=== PATIENT | male | born 1965 | race Caucasian/White ===

== ENCOUNTER 2019-06-04 19:30 | Emergency (ER) | payer MEDICAID ==
[~2019-06-04] VITALS: Ht 193 cm; Wt 108.9 kg
[2019-06-04 20:00] VITALS: BP 138/88
[2019-06-04] MEDS ORDERED: PANTOPRAZOLE 40 MG/10 ML VIAL INJ IV STA (20:12)
[2019-06-04] MEDS ORDERED: ONDANSETRON HCL 4 MG/2 ML VIAL IV ONE (20:15)
[2019-06-04] MEDS ORDERED: MORPHINE SULFATE 4 MG/ML SYR/VIAL IV ONE (20:15)
[2019-06-04 20:51] LABS: Basophils # (auto) 0.1 uL; Basophils % (auto) 0.6 % (0.0-2.0); Eosinophils # (auto) 0.3 uL; Eosinophils % (auto) 3.9 % (0.0-7.0); Hemoglobin 16.1 g/dL (13.5-17.5); Lymphocytes # (auto) 1.7 uL; Lymphocytes % (auto) 19.3 % (10.0-50.0); Mean Corpuscular Hemoglobin 28.6 pg (28.0-32.0); Mean Corpuscular Hgb Conc. 34.3 g/dL (32.0-36.0); Mean Corpuscular Volume 83.3 fL (80.0-100.0); Monocytes # (auto) 1.1 uL; Neutrophils # (auto) 5.5 uL; Neutrophils % (auto) 63.2 % (37.0-80.0); Nucleated Red Blood Cells % 0.3 %; Platelet Count (auto) 287 10^3/uL (140-450); Red Blood Cells 5.65 10^6/uL (4.5-5.90); Red Cell Distribution Width 15.6 % (11.8-14.3); White Blood Cell 8.7 10^3/uL (4.4-10.8)
[2019-06-04 21:09] LABS: Albumin 3.5 g/dL (3.4-5.0); Calcium 9.2 mg/dL (8.5-10.1)
[2019-06-04 21:10] LABS: Bilirubin, Total 0.7 mg/dL (0.2-1.0); Total Protein 8.1 g/dL (6.4-8.2)
== END 2019-06-05 02:00 | disposition home or self-care (01) ==
LOC: ER 19:33
DX: R10.84 Generalized abdominal pain (principal); R19.7 Diarrhea, unspecified; J45.909 Unspecified asthma, uncomplicated; Z87.891 Personal history of nicotine dependence; Z88.0 Allergy status to penicillin; Z88.1 Allergy status to other antibiotic agents
CPT/HCPCS: 36415; 74176; 80053; 82150; 83690; 85025

== ENCOUNTER 2021-01-05 22:15 | Emergency (ER) | payer MEDICAID ==
[~2021-01-05] VITALS: Ht 182.9 cm; Wt 122.5 kg
[2021-01-06] MEDS ORDERED: HYDROcodone-ACET 10/325MG TAB PO ONE (02:30)
[2021-01-06] MEDS ORDERED: ONDANSETRON ODT 4 MG TAB PO ONE (02:30)
[2021-01-06] MEDS ORDERED: OXYMETAZOLINE HCL 0.05 % NASAL SPRAY 15ML EACHNOSTRI ONE (02:30)
[2021-01-06 04:06] VITALS: BP 136/89
== END 2021-01-06 04:24 | disposition home or self-care (01) ==
LOC: EDBD 22:15 → ER 22:15
DX: R04.0 Epistaxis (principal); J45.909 Unspecified asthma, uncomplicated; Z87.09 Personal history of other diseases of the respiratory system; Z90.49 Acquired absence of other specified parts of digestive tract; Z90.89 Acquired absence of other organs; Z88.0 Allergy status to penicillin; Z88.1 Allergy status to other antibiotic agents
CPT/HCPCS: 99283; Q0162

== ENCOUNTER 2021-03-29 16:19 | Emergency (ER) | payer MEDICAID ==
[~2021-03-29] VITALS: Ht 188 cm; Wt 122.5 kg
[2021-03-29] MEDS ORDERED: IPRATROPIUM BROM 0.5 MG/2.5ML INH SOL NEB ONE (17:30)
[2021-03-29] MEDS ORDERED: ALBUTEROL SULF 2.5 MG/0.5ML(0.5%) NEB SOLN NEB ONE (17:30)
[2021-03-29] MEDS ORDERED: methylPREDNISolone SOD SUCC 125 MG/2 ML VL IM ONE (17:30)
[2021-03-29 18:18] VITALS: BP 117/70
== END 2021-03-29 18:21 | disposition home or self-care (01) ==
LOC: ER 16:19
DX: J45.901 Unspecified asthma with (acute) exacerbation (principal); Z90.49 Acquired absence of other specified parts of digestive tract; Z87.891 Personal history of nicotine dependence; Z20.822 Contact with and (suspected) exposure to COVID-19
CPT/HCPCS: 36415; 71045; 87426; 94640; 96372; 99284; J2930; J7644; 93005

== ENCOUNTER 2021-10-16 02:33 | Emergency (ER) | payer MEDICAID ==
[~2021-10-16] VITALS: Ht 193 cm; Wt 120.7 kg
[2021-10-16 03:30] LABS: Hematocrit 26.5 % (41.0-53.0); Mean Corpuscular Hemoglobin 17.1 pg (28.0-32.0); Red Blood Cells 4.54 10^6/uL (4.5-5.90); White Blood Cell 8.2 10^3/uL (4.4-10.8)
[2021-10-16 03:32] LABS: Albumin 3.2 g/dL (3.4-5.0); Calcium 8.7 mg/dL (8.5-10.1); Hemoglobin 7.7 g/dL (13.5-17.5); Magnesium 2.1 mg/dL (1.6-2.6); Mean Corpuscular Hgb Conc. 29.2 g/dL (32.0-36.0); Mean Corpuscular Volume 58.4 fL (80.0-100.0); Red Cell Distribution Width 18.5 % (11.8-14.3)
[2021-10-16 03:35] LABS: Bilirubin, Total 0.2 mg/dL (0.2-1.0); Total Protein 6.8 g/dL (6.4-8.2)
[2021-10-16 03:49] LABS: Band Neutrophils % (manual) 0; Blast Cells 0; Metamyelocytes % 0; Myelocytes % 0; Promyelocytes % 0; Reactive Lymphocytes 0
[2021-10-16 05:04] LABS: Basophils % (manual) 1 (0.0-2.0); Eosinophils % (manual) 5 (0-7); Lymphocytes % (manual) 28 (10.0-50.0); Monocytes % (manual) 6 (0-12)
[2021-10-16 05:49] LABS: Urine Bacteria NONE SEEN /hpf (None Seen); Urine Blood Negative /uL (Negative); Urine Mucus FEW (None Seen); Urine Specific Gravity 1.024 (1.001-1.035); Urine WBC 2 /hpf (0 - 3)
[2021-10-16 08:31] VITALS: BP 129/80
[2021-10-16] MEDS ORDERED: PANT40TA2 PO (08:54)
[2021-10-16] MEDS ORDERED: FERR-20 PO (08:54)
== END 2021-10-16 09:10 | disposition home or self-care (01) ==
LOC: ER 02:33
DX: K29.70 Gastritis, unspecified, without bleeding (principal); D64.9 Anemia, unspecified; J45.909 Unspecified asthma, uncomplicated; Z90.49 Acquired absence of other specified parts of digestive tract; Z90.89 Acquired absence of other organs; Z88.0 Allergy status to penicillin; Z88.1 Allergy status to other antibiotic agents; Z87.891 Personal history of nicotine dependence
CPT/HCPCS: 36415; 74176; 80053; 81001; 82150; 83690; 83735; 85007; 85027

== ENCOUNTER 2022-02-01 19:32 | Emergency (ER) | payer MEDICAID ==
[~2022-02-01] VITALS: Ht 193 cm; Wt 124.0 kg
[2022-02-01 19:32] VITALS: BP 112/89
[~2022-02-01 19:32] MED LIST: FERR-20 PO; PANT40TA2 PO
[2022-02-01 22:10] LABS: Basophils # (auto) 0.1 10 ^3/uL (0-0.2); Mean Corpuscular Hemoglobin 26.3 pg (28.0-32.0); Nucleated Red Blood Cells % 0.1 %; Red Blood Cells 6.09 10^6/uL (4.5-5.90)
[2022-02-01 22:12] LABS: Basophils % (auto) 1.2 % (0.0-2.0); Eosinophils % (auto) 12.9 % (0.0-7.0); Hematocrit 49.5 % (41.0-53.0); Lymphocytes % (auto) 25.3 % (10.0-50.0); Mean Corpuscular Hgb Conc. 32.4 g/dL (32.0-36.0); Mean Corpuscular Volume 81.3 fL (80.0-100.0); Monocytes # (auto) 0.8 10 ^3/uL (0-1.3); Monocytes % (auto) 10.5 % (0.0-12.0); Neutrophils # (auto) 3.9 10 ^3/uL (1.6-8.6); Neutrophils % (auto) 50.1 % (37.0-80.0); Red Cell Distribution Width 17.6 % (11.8-14.3); White Blood Cell 7.7 10^3/uL (4.4-10.8)
[2022-02-01 22:30] LABS: INR 0.99 (0.9-1.15); Partial Thromboplastin Time 27.1 sec (24.6-33.4)
[2022-02-01 22:33] LABS: Albumin 3.6 g/dL (3.4-5.0); Calcium 8.3 mg/dL (8.5-10.1); Potassium 4.5 mmol/L (3.5-5.1)
[2022-02-01 22:38] LABS: BUN/Creatinine Ratio 14.6; Bilirubin, Total 0.3 mg/dL (0.2-1.0); Total Protein 7.5 g/dL (6.4-8.2)
[2022-02-02] MEDS ORDERED: MORPHINE SULFATE INJ 2 MG/ml SYRG IV PRN (02:15)
[2022-02-02] MEDS ORDERED: TEMAZEPAM 15 MG CAP PO PRN (02:15)
[2022-02-02] MEDS ORDERED: ONDANSETRON HCL 4 MG/2 ML VIAL IV PRN (02:15)
[2022-02-02] MEDS ORDERED: HYDROcodone-ACET 5/325MG TAB PO PRN (02:15)
[2022-02-02] MEDS ORDERED: ACETAMINOPHEN 325 MG TAB PO PRN (02:15)
[2022-02-02] MEDS ORDERED: SODIUM CHLOR 0.9% PF (SALINE LOCK) 10ML VIAL/SYR IV SCH (06:00)
[2022-02-02] MEDS ORDERED: ASPirin 81 mg TAB PO SCH (10:00)
[2022-02-02] MEDS ORDERED: FAMOTIDINE (10MG/ML) 2ML VL IV SCH (10:00)
[2022-02-02] MEDS ORDERED: ATORVASTATIN 20 MG TAB PO SCH (22:00)
== END 2022-02-02 03:39 | disposition left against medical advice (07) ==
LOC: ER 19:32
DX: R07.89 Other chest pain (principal); J45.909 Unspecified asthma, uncomplicated; Z90.49 Acquired absence of other specified parts of digestive tract; Z87.891 Personal history of nicotine dependence; Z88.0 Allergy status to penicillin; Z88.1 Allergy status to other antibiotic agents
CPT/HCPCS: 36415; 71045; 80053; 83880; 84484; 85025; 85610; 85730; 93005

== ENCOUNTER 2023-11-07 10:54 | Emergency (ER) | payer MEDICAID ==
[~2023-11-07] VITALS: Ht 193 cm; Wt 120.2 kg
[~2023-11-07 10:54] MED LIST changes: -FERR-20 PO; +FERR325T24 PO
[2023-11-07] MEDS: cloNIDine HCL 0.1 MG TAB PO ONE (11:15)
[2023-11-07] MEDS: ONDANSETRON ODT 4 MG TAB PO ONE (11:49)
[2023-11-07 12:06] LABS: Basophils # (auto) 0.1 10 ^3/uL (0-0.2); Basophils % (auto) 0.9 % (0.0-2.0); Eosinophils # (auto) 0.3 10 ^3/uL (0-0.8); Hematocrit 45.7 % (41.0-53.0); Lymphocytes # (auto) 1.1 10 ^3/uL (0.4-5.4); Mean Corpuscular Hgb Conc. 32.8 g/dL (32.0-36.0); Monocytes # (auto) 0.6 10 ^3/uL (0-1.3)
[2023-11-07 12:09] LABS: Eosinophils % (auto) 5.1 % (0.0-7.0); Lymphocytes % (auto) 16.7 % (10.0-50.0); Mean Corpuscular Volume 79.1 fL (80.0-100.0); Monocytes % (auto) 9.1 % (0.0-12.0); Neutrophils # (auto) 4.5 10 ^3/uL (1.6-8.6); Neutrophils % (auto) 68.2 % (37.0-80.0); Red Blood Cells 5.77 10^6/uL (4.5-5.90); Red Cell Distribution Width 16.3 % (11.8-14.3); White Blood Cell 6.5 10^3/uL (4.4-10.8)
[2023-11-07 12:21] LABS: Chloride 107 mmol/L (98-107); Potassium 4.4 mmol/L (3.5-5.1); Sodium 139 mmol/L (136-145)
[2023-11-07 12:22] LABS: Anion Gap 5 (5-15); Calcium 9.5 mg/dL (8.5-10.1); Carbon Dioxide 27 mmol/L (20-30)
[2023-11-07 12:27] LABS: BUN/Creatinine Ratio 10.3 (10.0-20.0); Blood Urea Nitrogen 9 mg/dL (9-23); Glucose 94 mg/dL (74-106)
[2023-11-07] MEDS ORDERED: ZOFR4T PO (13:14)
[2023-11-07 13:36] VITALS: BP 144/92; TEMP 98
[2023-11-07 13:37] VITALS: PULSE 60; RESP 15; O2SAT 96
== END 2023-11-07 13:40 | disposition home or self-care (01) ==
LOC: ER 10:56
DX: I16.0 Hypertensive urgency (principal); R11.2 Nausea with vomiting, unspecified; J45.909 Unspecified asthma, uncomplicated; Z98.890 Other specified postprocedural states; Z87.891 Personal history of nicotine dependence; Z88.8 Allergy status to other drugs, medicaments and biological substances; Z88.0 Allergy status to penicillin; Z79.899 Other long term (current) drug therapy
CPT/HCPCS: 36415; 70450; 80048; 85025; 99284; Q0162

== ENCOUNTER 2024-09-27 18:42 | Emergency (ER) | payer MEDICAID ==
[~2024-09-27] VITALS: Ht 193 cm; Wt 120.3 kg
[~2024-09-27 18:42] MED LIST changes: +ZOFR4T PO
--- NOTE | 2024-09-27 19:03 | ED.PDOC ---
History of Present Illness HPI Comments 59 y.o male with PMHx of an iron deficiency and asthma, presents to the ED for a chief complaint of body pain x 2 weeks associated with SOB that started today. Patient reports similar symptoms back when he was diagnosed with the iron deficiency 3 years ago, was prescribed iron tablets which he stopped taking s/p feeling better. Patient reports he started to take the tablets once again recently. Patient reports pain is constant described as aching in all his muscles, and SOB is with minimal activity, is not associated with wheezing, and is different than previous asthmatic episodes. He denies any chest pain, bleeding, fever, chills, recent illness, sick contact exposure. Chief Complaint: Shortness of Breath Time Seen by MD: 18:50 Primary Care Provider: CHRISTINA Reviewed Notes: Nurses Notes, Medications, Allergies Allergies: Coded Allergies: Levofloxacin (Verified Allergy, Unknown, 06/01/19) Penicillins (Verified Allergy, Unknown, 06/01/19) Home Meds Active Scripts Ondansetron Odt 4MG Tab (ZOFRAN PO) 4 Mg Tb, 4 MG PO Q8HP PRN for 5 Days, #15 TAB ODT TAB-DISSOLVE IN MOUTH, THEN SWALLOW Prov:TREVOR REGALADO MD 11/07/23 Ferrous Sulfate (Ferrous Sulfate) 325 Mg Tab, 325 MG PO DAILY for 10 Days, #10 MG Prov:KAMERON DUKES MD 10/16/21 Pantoprazole Sodium Sesquihydr (Protonix) 40 Mg Tab, 40 MG PO DAILY for 10 Days, #10 TAB Prov:KAMERON DUKES MD 10/16/21 Information Source: Patient Mode of Arrival: Ambulatory Severity: Moderate Timing: Weeks (2) Duration: Since onset Past Medical History PAST MEDICAL HISTORY: Asthma, HTN Past Medical History (Other): iron deficiency, microcytosis Surgical History: Appendectomy, Cholecystectomy, Hernia Repair Family History Family History: Unknown Social History Smoker: Quit Greater Than 1 Year Alcohol: Rarely Drugs: Denies Drug Use Lives In: Home Constitutional: denies: chills, diaphoresis, fatigue, fever, malaise, sweats, weakness, others EENTM: denies: blurred vision, double vision, ear bleeding, ear discharge, ear drainage, ear pain, ear ringing, eye pain, eye redness, hearing loss, mouth pa in, mouth swelling, nasal discharge, nose bleeding, nose congestion, nose pain, photophobia, tearing, throat pain, throat swelling, voice changes, others Respiratory: reports: SOB at rest, shortness of breath; denies: cough, hemoptysis, orthopnea, SOB with excertion, stridor, wheezing, others Cardiovascular: denies: chest pain, dizzy spells, diaphoresis, Dyspnea on exertion, edema, irregular heart beat, left arm pain, lightheadedness, palpitations, PND, syncope, others Gastrointestinal: denies: abdomen distended, abdominal pain, blood streaked bowels, constipated, diarrhea, dysphagia, difficulty swallowing, hematemesis, melena, nausea, poor appetite, poor fluid intake, rectal bleeding, rectal pain, vomiting, others Genitourinary: denies: burning, dysuria, flank pain, frequency, hematuria, incontinence, penile discharge, penile sore, pain, testicle pain, testicle swelling, urgency, others Neurological: denies: dizziness, fainting, headache, left sided numbness, left sided weakness, numbness, paresthesia, pre-existing deficit, right sided numbness, right sided weakness, seizure, speech problems, tingling, tremors, weakness, others Musculoskeletal: reports: muscle pain; denies: back pain, gout, joint pain, joint swelling, muscle stiffness, neck pain, others Integumetry: denies: bruises, change in color, change in hair/nails, dryness, laceration, lesions, lumps, rash, wounds, others Allergic/Immunocompromised: denies: Difficulty Healing, Frequent Infections, Hives, Itching, others Hematologic/Lymphatic: denies: anemia, blood clots, easy bleeding, easy bruising, swollen glands, others Endocrine: denies: excessive hunger, excessive sweating, excessive thirst, excessive urination, flushing, intolerance to cold, intolerance to heat, unexplained weight gain, unexplained weight loss, others Psychiatric: denies: anxiety, bipolar disorder, depression, hopeless, panic disorder, schizophrenia, sleepless, suicidal, others All Other Systems: Reviewed and Negative Physical Exam General Appearance: No Apparent Distress, Obese HEENT: Other (Pupils and face symmetric. Moist mucous membranes.) Neck: Full Range of Motion, Normal Inspection Respiratory: Lungs Clear, No Accessory Muscle Use, No Respiratory Distress, Normal Breath Sounds Cardiovascular: No Edema, No JVD, Regular Rate/Rhythm Breast Exam: Deferred Gastrointestinal: Non Tender, Soft Genitalia: Deferred Pelvic: Deferred Rectal: Deferred Extremities: Normal inspection, Normal range of motion, Non-tender, No pedal edema Neurologic: Alert (Oriented x4), Normal Affect, Normal Mood, Other (Ambulatory. ) Cerebellar Function: NOT DONE Reflexes: NOT DONE Skin: Dry, Normal Color, Warm Lymphatic: NOT DONE Was a procedure done? Was a procedure done?: No EKG EKG : Comments Sinus rhythm, rate 93, normal intervals, normal axis, incomplete right bundle- branch block, lateral ST depression with other nonspecific T change Differential Dx Considerations may include: Iron deficiency, anemia, rhabdomyolysis, peripheral vascular disease, CHF, COPD/asthma, bronchitis, pneumonia, neuropathy, arrhythmia, FL, PE, among others X-Ray, Labs, Meds, VS Vital Signs Date Time Temp Pulse Resp B/P (MAP) Pulse Ox O2 Delivery O2 Flow Rate FiO2 09/27/24 19:00 93 09/27/24 18:51 98.0 111 16 123/87 (99) 94 98.0 Lab Test 09/27/24 19:14 09/27/24 15:57 Range/Units White Blood Count 8.5 4.4-10.8 10^3/uL Red Blood Count 5.68 4.5-5.90 10^6/uL Hemoglobin 16.0 13.5-17.5 g/dL Hematocrit 47.9 41.0-53.0 % Mean Corpuscular Volume 84.5 80.0-100.0 fL Mean Corpuscular Hemoglobin 28.3 28.0-32.0 pg Mean Corpuscular Hemoglobin Concent 33.5 32.0-36.0 g/dL Red Cell Distribution Width 16.1 H 11.8-14.3 % Platelet Count 231 140-450 10^3/uL Mean Platelet Volume 8.2 6.9-10.8 fL Neutrophils (%) (Auto) 59.0 37.0-80.0 % Lymphocytes (%) (Auto) 23.7 10.0-50.0 % Monocytes (%) (Auto) 9.0 0.0-12.0 % Eosinophils (%) (Auto) 7.1 H 0.0-7.0 % Basophils (%) (Auto) 1.2 0.0-2.0 % Neutrophils # (Auto) 5.0 1.6-8.6 10 ^3/uL Lymphocytes # (Auto) 2.0 0.4-5.4 10 ^3/uL Monocytes # (Auto) 0.8 0-1.3 10 ^3/uL Eosinophils # (Auto) 0.6 0-0.8 10 ^3/uL Basophils # (Auto) 0.1 0-0.2 10 ^3/uL Nucleated Red Blood Cells 0.0 % D-Dimer, Quantitative 0.21 0.0-0.49 mg/L FEU Sodium Level 141 136-145 mmol/L Potassium Level 4.0 3.5-5.1 mmol/L Chloride Level 110 H 98-107 mmol/L Carbon Dioxide Level 24 20-31 mmol/L Anion Gap 7 5-15 Blood Urea Nitrogen 14 9-23 mg/dL Creatinine 0.90 0.700-1.30 mg/dL Glomerular Filtration Rate Calc 100 >90 mL/min BUN/Creatinine Ratio 15.6 10.0-20.0 Serum Glucose 124 H 74-106 mg/dL Calcium Level 9.3 8.7-10.4 mg/dL Iron Level 403 H 65-175 ug/dL Total Iron Binding Capacity 393 250-425 ug/dL Percent Iron Saturation 102.5 H 20-55 % Total Bilirubin 0.5 0.2-1.0 mg/dL Aspartate Amino Transferase (AST) 39 13-40 U/L Alanine Aminotransferase (ALT) 75 H 7-40 U/L Alkaline Phosphatase 108 46-116 U/L Creatine Kinase 98 46-171 U/L Troponin I High Sensitivity 3 L </=54 ng/L B-Type Natriuretic Peptide 17.08 0-100 pg/mL Total Protein 6.8 5.7-8.2 g/dL Albumin 4.4 3.2-4.8 g/dL Urine Color Yellow Yellow Urine Clarity Clear Clear Urine pH 6.5 5.0-9.0 Urine Specific [place] 1.030 1.001-1.035 Urine Protein Negative Negative Urine Ketones Negative Negative Urine Blood Negative Negative /uL Urine Nitrite Negative Negative Urine Bilirubin Negative Negative Urine Urobilinogen 2 H Negative mg/dL Urine Leukocyte Esterase Negative Negative /uL Urine RBC 1 0 - 3 /hpf Urine Microscopic WBC < 1 0-3 /HPF Urine Squamous Epithelial Cells Few <5 /hpf Urine Bacteria None seen None Seen /hpf Urine Glucose Normal Normal mg/dL PROCEDURE(s): CXRP - CHEST PORTABLE REASON: sob ORDER NUMBER(s): [id number], ACCESSION NUMBER(s): [id number] CHEST RADIOGRAPH Indication: sob Technique: Single frontal view of the chest was obtained Comparison: CHEST PORTABLE on DOS: 02/01/22, CXRP on DOS: 02/01/22, CHEST PORTABLE on DOS: 03/29/21 FINDINGS: Lines and Tubes: None Lungs: No focal consolidation. Pleura: No effusion. No pneumothorax. Cardiomediastinal contours: Unremarkable Bones: No acute osseous abnormality. IMPRESSION: 1. No acute cardiopulmonary disease. 2. No significant change from 02/01/2022 X-Ray, Labs, Meds, VS Comment 59-year-old male with a history of hypertension, asthma and iron deficiency complaining of body aches and shortness of breath Vitals remarkable for heart rate 111, oxygen saturation 94% on room air Rhythm strip independently interpreted by me: Sinus rhythm, rate 83, no ectopy. Chest x-ray unremarkable CBC, CMP, BNP, total CK, troponin and D-dimer unremarkable. iron panel showed elevated iron level, normal TIBC, and elevated% saturation. No acute treatment was indicated in the ED. On re-evaluation, patient's vital signs were unremarkable including oxygen saturation which was normal on room air. Patient does not appear to require hospitalization or acute treatment at this time. He was provided with his results and advised to follow-up with his primary physician in the next 2 days for further evaluation. Time of 1ST Reevaluation: 19:03 Reevaluation 1ST: Unchanged Time of 2ND Reevaluation: 21:02 Reevaluation 2ND: Improved Patient Education/Counseling: Diagnosis, Treatment, Prognosis Family Education/Counseling: No Family Present Departure 1 Departure Time of Disposition: 21:02 Impression: Primary Impression: Body aches Additional Impression: Shortness of breath Disposition: 01 HOME / SELF CARE / HOMELESS Condition: Stable Additional Instructions: Your blood tests, including screening test for heart attack, heart failure and b lood clots in your lungs, as well as your iron panel were unremarkable. Your chest x-ray was unremarkable. I have provided copies of your results. Follow- up with your primary doctor in 1-2 days for further evaluation. Discharged With: Self Critical Care Note Critical Care Time?: No Stability Stability form required: No I personally scribed for MARISSA ZHONG MD ([email or web address]) on 09/27/24 at 19:03. Electronically submitted by Mayelin Mae ([facility]). MARISSA ZHONG MD September 27, 2024 19:03
[2024-09-27 19:24] LABS: Urine Bacteria None Seen /hpf (None Seen)
[2024-09-27 19:25] LABS: Basophils # (auto) 0.1 10 ^3/uL (0-0.2); Basophils % (auto) 1.2 % (0.0-2.0); Eosinophils # (auto) 0.6 10 ^3/uL (0-0.8); Eosinophils % (auto) 7.1 % (0.0-7.0); Hematocrit 47.9 % (41.0-53.0); Lymphocytes % (auto) 23.7 % (10.0-50.0); Mean Corpuscular Hemoglobin 28.3 pg (28.0-32.0); Mean Corpuscular Hgb Conc. 33.5 g/dL (32.0-36.0); Mean Corpuscular Volume 84.5 fL (80.0-100.0); Monocytes # (auto) 0.8 10 ^3/uL (0-1.3); Platelet Count (auto) 231 10^3/uL (140-450); Red Blood Cells 5.68 10^6/uL (4.5-5.90); Red Cell Distribution Width 16.1 % (11.8-14.3); White Blood Cell 8.5 10^3/uL (4.4-10.8)
[2024-09-27 19:32] LABS: Urine Blood Negative /uL (Negative); Urine Clarity Clear (Clear); Urine Color Yellow (Yellow); Urine Protein, UAD Negative (Negative); Urine Squamous Epithelial Cell FEW /hpf (<5); Urine Urobilinogen 2 mg/dL (Negative); Urine WBC < 1 /HPF (0-3); Urine pH 6.5 (5.0-9.0)
[2024-09-27 19:45] LABS: % Iron Saturation 102.5 % (20-55); Albumin 4.4 g/dL (3.2-4.8); Alkaline Phosphatase 108 U/L (46-116); Anion Gap 7 (5-15); Aspartate Aminotransferase 39 U/L (13-40); BUN/Creatinine Ratio 15.6 (10.0-20.0); Blood Urea Nitrogen 14 mg/dL (9-23); Calcium 9.3 mg/dL (8.7-10.4); Carbon Dioxide 24 mmol/L (20-31); Sodium 141 mmol/L (136-145); Total Protein 6.8 g/dL (5.7-8.2)
[2024-09-27 19:46] LABS: Bilirubin, Total 0.5 mg/dL (0.2-1.0); Creatine Kinase IFCC 98 U/L (46-171)
[2024-09-27 19:52] LABS: Alanine Aminotransferase 75 U/L (7-40); Chloride 110 mmol/L (98-107); Glucose 124 mg/dL (74-106)
--- NOTE | 2024-09-27 20:16 | DVH ---
CHEST RADIOGRAPH Indication: sob Technique: Single frontal view of the chest was obtained Comparison: CHEST PORTABLE on DOS: 02/01/22, CXRP on DOS: 02/01/22, CHEST PORTABLE on DOS: 03/29/21 FINDINGS: Lines and Tubes: None Lungs: No focal consolidation. Pleura: No effusion. No pneumothorax. Cardiomediastinal contours: Unremarkable Bones: No acute osseous abnormality. IMPRESSION: 1. No acute cardiopulmonary disease. 2. No significant change from 02/01/2022
[2024-09-27 21:30] VITALS: BP 129/88; PULSE 98; RESP 18; TEMP 98; O2SAT 98
--- NOTE | 2024-09-30 14:01 | ECG ---
[facility] Test Date: 2024-09-27 Test Time: 19:00:28 Pat Name: JEFF JACKSON Department: ER Room: Gender: M Bias Cutter: DR SHANNON: 1965 Requested By: MARISSA LUX Order Number: [id number] Reading MD: Chan Lucero Measurements Intervals [place] Rate: 93 P: 66 AR: 143 QRS: 27 QRSD: 115 T: -22 QT: 367 QTc: 457 Interpretive Statements Sinus rhythm Incomplete right bundle branch block Electronically Signed On 10-01-2024 20:37:37 PDT by Chan Lucero Please click the below link to view image of tracing.
== END 2024-09-27 21:50 | disposition home or self-care (01) ==
LOC: ER 18:42
DX: M79.10 Myalgia, unspecified site (principal); R06.02 Shortness of breath; I10 Essential (primary) hypertension; J45.909 Unspecified asthma, uncomplicated; Z90.49 Acquired absence of other specified parts of digestive tract; Z98.890 Other specified postprocedural states; Z79.899 Other long term (current) drug therapy; Z87.891 Personal history of nicotine dependence; Z88.0 Allergy status to penicillin; Z88.1 Allergy status to other antibiotic agents
CPT/HCPCS: 36415; 71045; 80053; 81001; 82550; 83540; 83550; 83880; 84484; 85025; 85379; 93005

== ENCOUNTER 2025-04-28 19:26 | Emergency (ER) | payer MEDICAID ==
[~2025-04-28] VITALS: Ht 193 cm; Wt 115.9 kg
--- NOTE | 2025-04-28 20:03 | ED.PDOC ---
History of Present Illness HPI Comments 59M presents to the Er w/ prior MHx of Asthma and the c/c of SOB. Pt reports on having had a sudden onset of SOB which started yesterday, prompting him to go to and being prescribed meds w/ the diagnosis of bronchitis. Pt notes on trying his inhaler w/ no relief. Denies any symptoms at this time. Patient denies any CP, dizziness, numbness, weakness, tingling, fever, chills, or recent fall. Chief Complaint: Shortness of Breath Time Seen by MD: 20:00 Primary Care Provider: CHRISTINA Reviewed Notes: Nurses Notes, Medications, Allergies Allergies: Coded Allergies: No Known Drug Allergy (Verified Allergy, Unknown, 04/28/25) Home Meds Active Scripts Ondansetron Odt 4MG Tab (ZOFRAN PO) 4 Mg Tb, 4 MG PO Q8HP PRN for 5 Days, #15 TAB ODT TAB-DISSOLVE IN MOUTH, THEN SWALLOW Prov:TREVOR REGALADO MD 11/07/23 Ferrous Sulfate (Ferrous Sulfate) 325 Mg Tab, 325 MG PO DAILY for 10 Days, #10 MG Prov:KAMERON DUKES MD 10/16/21 Pantoprazole Sodium Sesquihydr (Protonix) 40 Mg Tab, 40 MG PO DAILY for 10 Days, #10 TAB Prov:KAMERON DUKES MD 10/16/21 Information Source: Patient Mode of Arrival: Ambulatory Severity: Moderate Timing: Hours Duration: Since onset, Hours Prehospital treatment: None Past Medical History PAST MEDICAL HISTORY: Asthma, HTN Surgical History: Appendectomy, Cholecystectomy, Hernia Repair Family History Family History: Reviewed,noncontributory to illness, Unknown Social History Smoker: Quit Greater Than 1 Year Alcohol: Rarely Drugs: Denies Drug Use Lives In: Home Constitutional: denies: chills, diaphoresis, fatigue, fever, malaise, sweats, weakness, others EENTM: denies: blurred vision, double vision, ear bleeding, ear discharge, ear drainage, ear pain, ear ringing, eye pain, eye redness, hearing loss, mouth pain, mouth swelling, nasal discharge, nose bleeding, nose congestion, nose pain, photophobia, tearing, throat pain, throat swelling, voice changes, others Respiratory: reports: cough, shortness of breath, wheezing; denies: hemoptysis, orthopnea, SOB at rest, SOB with excertion, stridor, others Cardiovascular: denies: chest pain, dizzy spells, diaphoresis, Dyspnea on exertion, edema, irregular heart beat, left arm pain, lightheadedness, palpitations, PND, syncope, others Gastrointestinal: denies: abdomen distended, abdominal pain, blood streaked bowels, constipated, diarrhea, dysphagia, difficulty swallowing, hematemesis, melena, nausea, poor appetite, poor fluid intake, rectal bleeding, rectal pain, vomiting, others Genitourinary: denies: burning, dysuria, flank pain, frequency, hematuria, incontinence, penile discharge, penile sore, pain, testicle pain, testicle swelling, urgency, others Neurological: denies: dizziness, fainting, headache, left sided numbness, left sided weakness, numbness, paresthesia, pre-existing deficit, right sided numbness, right sided weakness, seizure, speech problems, tingling, tremors, weakness, others Musculoskeletal: denies: back pain, gout, joint pain, joint swelling, muscle pain, muscle stiffness, neck pain, others Integumetry: denies: bruises, change in color, change in hair/nails, dryness, laceration, lesions, lumps, rash, wounds, others Allergic/Immunocompromised: denies: Difficulty Healing, Frequent Infections, Hives, Itching, others Hematologic/Lymphatic: denies: anemia, blood clots, easy bleeding, easy bruising, swollen glands, others Endocrine: denies: excessive hunger, excessive sweating, excessive thirst, excessive urination, flushing, intolerance to cold, intolerance to heat, unexplained weight gain, unexplained weight loss, others Psychiatric: denies: anxiety, bipolar disorder, depression, hopeless, panic disorder, schizophrenia, sleepless, suicidal, others All Other Systems: Reviewed and Negative Physical Exam Exam Comments Bilateral Lung Guerra Wheezing General Appearance: No Apparent Distress, Normal HEENT: Normal ENT Inspection, Pharynx Normal, TMs Normal Neck: Full Range of Motion, Non-Tender, Normal, Normal Inspection Respiratory: Chest Non-Tender, Lungs Clear, No Accessory Muscle Use, No Respiratory Distress, Normal Breath Sounds Cardiovascular: No Edema, No JVD, No Murmur, No Gallop, Normal Peripheral Pulses, Regular Rate/Rhythm Breast Exam: Deferred Gastrointestinal: No Organomegaly, Non Tender, No Pulsatile Mass, Normal Bowel Sounds, Soft Genitalia: Deferred Pelvic: Deferred Rectal: Deferred Extremities: No calf tenderness, Normal capillary refill, Normal inspection, Normal range of motion, Non-tender, No pedal edema Musculoskeletal : Apperance: Normal Neurologic: Alert, specialist employee labor relations II-XII nml as Tested, No Motor Deficits, Normal Affect, Normal Mood, No Sensory Deficits Cerebellar Function: Normal Reflexes: Normal Skin: Dry, Normal Color, Warm Lymphatic: No Adenopathy Was a procedure done? Was a procedure done?: No Differential Dx Considerations may include: Pneumonia, has been exacerbation, URI X-Ray, Labs, Meds, VS Vital Signs Date Time Temp Pulse Resp B/P (MAP) Pulse Ox O2 Delivery O2 Flow Rate FiO2 04/28/25 19:28 98.4 101 16 126/91 93 98.4 X-Ray, Labs, Meds, VS Comment Imaging was reviewed by this provider, there is no obvious pathological or acute disease process. Pending radiology review Labs were reviewed by this provider, no abnormalities Vital signs reviewed by this provider, clinically stable Time of 1ST Reevaluation: 20:30 Reevaluation 1ST: Unchanged Patient Education/Counseling: Diagnosis, Treatment, Prognosis, Need For Follow Up (Follow up with PCP next available appointment. Return to emergency department if symptoms worsen.) Family Education/Counseling: No Family Present SEPSIS Sepsis Screen Date sepsis recognized/suspect: Apr 28, 2025 Time Sepsis recognized/suspect: 1930 Recent Procedure: No On Antibiotic Therapy: No Respiratory Rate >20: No Heart Rate >90: No Temp<36 C (96.8 F) or >38.3 C: No SBP <90 or MAP <65 mmHG: No New Acute Mental Status Change: No Is the patient on CPAP, BIPAP,: No Vital Signs Date Time Temp Pulse Resp B/P (MAP) Pulse Ox O2 Delivery O2 Flow Rate FiO2 04/28/25 19:28 98.4 101 16 126/91 93 98.4 Departure 1 Departure Time of Disposition: 20:05 Impression: Primary Impression: Asthma exacerbation Qualified Codes: J45.41 - Moderate persistent asthma with (acute) exacerbation Disposition: HOME / SELF CARE / HOMELESS Condition: Stable e-Prescriptions Prednisone (Prednisone) 20 Mg Tab 40 MG PO DAILY for 5 Days, #10 MG Prov: CHAR MOY 04/28/25 Discharged With: Self Critical Care Note Critical Care Time?: No Stability Stability form required: No Heart Score Heart Score: Heart Score Response (Comments) Value History N/A 0 EKG N/A 0 Age N/A 0 Risk Factors N/A 0 Troponin N/A 0 Total 0 I personally scribed for CHAR MOY ([email or web address]) on 04/28/25 at 20:03. Electronically submitted by Celio Francis ([email or web address]). CHAR MOY Apr 28, 2025 20:03
[2025-04-28] MEDS ORDERED: PRED20TA2 PO (20:07)
[2025-04-28] MEDS: ALBUTEROL SULF 2.5 MG/0.5ML(0.5%) NEB SOLN NEB ONE ×2 (20:10→22:34)
[2025-04-28] MEDS: IPRATROPIUM BROM 0.5 MG/2.5ML INH SOL NEB ONE ×2 (20:10→22:34)
[2025-04-28] MEDS: methylPREDNISolone SOD SUCC 125 MG/2 ML VL IM ONE (22:11)
[2025-04-28 22:17] VITALS: BP 154/96; PULSE 99; TEMP 98.2
[2025-04-28 23:55] VITALS: RESP 18; O2SAT 96
== END 2025-04-29 00:04 | disposition home or self-care (01) ==
LOC: ER 19:29
DX: J45.901 Unspecified asthma with (acute) exacerbation (principal); I10 Essential (primary) hypertension; Z79.899 Other long term (current) drug therapy; Z90.49 Acquired absence of other specified parts of digestive tract; Z98.890 Other specified postprocedural states
CPT/HCPCS: 94640; 96372; 99285; J2919